=== PATIENT | female | born 1970 | race Caucasian/White ===

== ENCOUNTER → 2024-07-22 09:42 | Outpatient (CLI) | payer OTHER, SELFPAY ==
--- NOTE | 2024-07-22 09:47 | DI.RAD.S_ITS ---
PROCEDURE: FL UPPER GI SERIES INDICATIONS: ASSESS FOR REFLUX, STRICTURE AND HIATAL HERNIA COMPARISON: None. FINDINGS: KUB: Preprocedural laborer shaft sinking film demonstrates a normal bowel gas pattern. No suspicious abdominal calcifications. Visualized solid organ contours appear normal. Bony structures appear unremarkable. Esophagus: Esophageal mucosa is normal on air-contrast views. On single-contrast views, there is normal esophageal peristalsis. The proximal 1/3 of the esophagus was not recorded but was visualized as normal No strictures, extrinsic mass effects, or diverticula. There is a moderate size hiatus hernia that is proximity.9 cm in size. There was moderate to severe reflux. This is seen in Trendelenburg position with water siphonage technique. There is normal transit of a calibrated barium tablet through the esophagus into the stomach.. Stomach: The stomach is normally distensible, with normal rugal fold thickness. No mucosal masses or ulcers. Pylorus and duodenal bulb appear normal in morphology. Duodenal folds are normal in thickness as well. IMPRESSION: Normal esophagus with distal hiatus hernia demonstrating reflux moderate to severe. Normal double-contrast stomach pylorus duodenal bulb, duodenum and proximal jejunum. Dictated by: Benedict Frank M.D. on 07/22/2024 at 13:00 Approved by: Benedict Frank M.D. on 07/22/2024 at 15:13
== END ==
PROVIDERS: PCP Nurse Practitioner Family; Referring Provider Surgery; Visit Provider Surgery
DX: K21.9 Gastro-esophageal reflux disease without esophagitis (principal); K44.9 Diaphragmatic hernia without obstruction or gangrene
CPT/HCPCS: 74240